=== PATIENT | male | born 1960 | race Caucasian/White ===

== ENCOUNTER 2017-07-13 08:11 | Inpatient (IN) | payer BC ==
--- NOTE | 2017-07-13 08:50 | ED ---
General Adult HPI <Will Oliva - Last Filed: 07/13/17 10:39> - General Source: patient, RN notes reviewed Mode of arrival: ambulatory Limitations: no limitations <Xu Morgan - Last Filed: 07/13/17 10:44> - General Chief complaint: Skin/Abscess/Foreign Body Stated complaint: Wound on Rt leg Time Seen by Provider: 07/13/17 08:31 - History of Present Illness Initial comments: Patient is a 57-year-old male who presents emergency room today with a chief complaint of a chronic wound to the right lower extremity that started back in January of this year. He states she's been on some antibiotics for the last 2 weeks of Keflex with no improvement. He states seems to be getting worse. Patient denies any other complaints or symptoms. Patient denies any recent fever , chills, shortness of breath, chest pain, back pain, abdominal pain, nausea or vomiting, numbness or tingling, dysuria or hematuria, constipation or diarrhea, headaches or visual changes, or any other complaints. (Xu Morgan) - Related Data Home Medications Medication Instructions Recorded Confirmed Benazepril HCl 40 mg PO DAILY@1800 07/13/17 07/13/17 Carvedilol [Coreg] 25 mg PO BID 07/13/17 07/13/17 Cephalexin [Keflex] 500 mg PO Q12HR 07/13/17 07/13/17 Cholecalciferol [Vitamin D3] 1,000 unit PO DAILY 07/13/17 07/13/17 Furosemide [Lasix] 40 mg PO BID PRN 07/13/17 07/13/17 NIFEdipine [NIFEdipine ER] 90 mg PO BID 07/13/17 07/13/17 Pentoxifylline 400 mg PO TID 07/13/17 07/13/17 metFORMIN HCL [Glucophage] 500 mg PO BID 07/13/17 07/13/17 Allergies Allergy/AdvReac Type Severity Reaction Status Date / Time morphine AdvReac Unknown Verified 07/13/17 08:47 Review of Systems ROS Other: All systems not noted in ROS Statement are negative. <Will Oliva - Last Filed: 07/13/17 10:39> ROS Other: All systems not noted in ROS Statement are negative. <Xu Morgan - Last Filed: 07/13/17 10:44> ROS Statement: Those systems with pertinent positive or pertinent negative responses have been documented in the HPI. Past Medical History Past Medical History: Cancer, Diabetes Mellitus, Hypertension Additional Past Medical History / Comment(s): skin History of Any Multi-Drug Resistant Organisms: None Reported Past Surgical History: Hernia Repair Additional Past Surgical History / Comment(s): lesion removed left leg, detached retina repair Past Psychological History: No Psychological Hx Reported Smoking Status: Current every day smoker Past Alcohol Use History: Occasional Past Drug Use History: None Reported <Xu Morgan - Last Filed: 07/13/17 10:44> General Exam <Will Oliva - Last Filed: 07/13/17 10:39> Limitations: no limitations <Xu Morgan - Last Filed: 07/13/17 10:44> - General Exam Comments Initial Comments: General: The patient is awake and alert, in no distress, and does not appear acutely ill. Neck: The neck is supple, there is no tenderness or JVD. Cardiovascular: There is a regular rate and rhythm. No murmur, rub or gallop is appreciated. Respiratory: Lungs are clear to auscultation, respirations are non-labored, breath sounds are equal. No wheezes, stridor, rales, or rhonchi. Musculoskeletal: Full range motion. Sensation intact. Pulses equal bilaterally 2+ patient strength 5/5. Neurological: A&O x 3. CN II-XII intact, There are no obvious motor or sensory deficits. Coordination appears grossly intact. Speech is normal. Skin: There is an area of redness and warmth and some swelling to the lower lateral aspect of the right leg. Largest portion across measures approximately 10 cm. There is no area of fluctuance. There is no lymphangitic streaking. Psychiatric: Normal mood and affect. (Xu Morgan) Vital Signs 07/13/17 07/13/17 08:16 09:39 Temperature 98.9 F Pulse Rate 68 64 Respiratory 16 20 Rate Blood Pressure 122/80 109/54 O2 Sat by Pulse 97 93 L Oximetry Medical Decision Making - Lab Data Result diagrams: 07/13/17 09:30 07/13/17 09:30 <Will Oliva - Last Filed: 07/13/17 10:39> - Lab Data Result diagrams: 07/13/17 09:30 07/13/17 09:30 <Xu Morgan - Last Filed: 07/13/17 10:44> - Medical Decision Making The patient was seen and examined. All diagnostics were reviewed. The case was discussed with internal medicine and they are agreeable to admission. The case is discussed with the PA and I agree with the findings as documented. ( Will Oliva) Patient has been on antibiotics of Keflex over the last 2 weeks with no improvement of this wound. States seems to be getting worse. Patient will be admitted for IV antibiotics for outpatient treatment failure. (Xu Morgan) - Lab Data Lab Results 07/13/17 07/13/17 07/13/17 Range/Units 09:30 09:30 09:30 WBC 10.9 H (3.8-10.6) k/uL RBC 4.98 (4.30-5.90) m/uL Hgb 16.2 (13.0-17.5) gm/dL Hct 50.5 (39.0-53.0) % MCV 101.4 H (80.0-100.0) fL MCH 32.6 (25.0-35.0) pg MCHC 32.1 (31.0-37.0) g/dL RDW 12.9 (11.5-15.5) % Plt Count 291 (150-450) k/uL Neutrophils % 75 % Lymphocytes % 15 % Monocytes % 5 % Eosinophils % 2 % Basophils % 1 % Neutrophils # 8.2 H (1.3-7.7) k/uL Lymphocytes # 1.7 (1.0-4.8) k/uL Monocytes # 0.6 (0-1.0) k/uL Eosinophils # 0.2 (0-0.7) k/uL Basophils # 0.1 (0-0.2) k/uL Sodium 141 (137-145) mmol/L Potassium 4.6 (3.5-5.1) mmol/L Chloride 105 (98-107) mmol/L Carbon Dioxide 25 (22-30) mmol/L Anion Gap 11 mmol/L BUN 14 (9-20) mg/dL Creatinine 0.74 (0.66-1.25) mg/dL Est GFR (MDRD) Af Amer >60 (>60 ml/min/1.73 sqM) Est GFR (MDRD) Non-Af >60 (>60 ml/min/1.73 sqM) Glucose 144 H (74-99) mg/dL Plasma Lactic Acid Wilver 1.1 (0.7-2.0) mmol/L Calcium 9.4 (8.4-10.2) mg/dL Total Bilirubin 0.7 (0.2-1.3) mg/dL AST 17 (17-59) U/L ALT 35 (21-72) U/L Alkaline Phosphatase 71 (38-126) U/L Total Protein 7.6 (6.3-8.2) g/dL Albumin 4.2 (3.5-5.0) g/dL Disposition <Will Oliva - Last Filed: 07/13/17 10:39> Time of Disposition: 08:50 <Xu Morgan - Last Filed: 07/13/17 10:44> Clinical Impression: Cellulitis Disposition: ADMITTED IP TO THIS HOSP Condition: Good Referrals: Jonathan Andrews DO [Primary Care Provider] - 1-2 days
[2017-07-13] MEDS ORDERED: SODIUM CHLORIDE 0.9% 1,000 ML IV STA (09:10)
[2017-07-13] MEDS ORDERED: VANCOMYCIN IV PER PHARMACY 1 EACH MISC MISCELLANE PRN ×2 (09:10→15:04)
[2017-07-13] MEDS ORDERED: VANCOMYCIN 2,500 MG in SODIUM CHLORIDE 0.9% 500 ML IVPB STA (09:14)
[2017-07-13 09:50] LABS: Basophils # (A) 0.1 k/uL (0-0.2); Basophils % (A) 1 %; CH 33.6; CHCM 33.3; Eosinophils # (A) 0.2 k/uL (0-0.7); Eosinophils % (A) 2 %; HCT 50.5 % (39.0-53.0); HDW 2.28; HGB 16.2 gm/dL (13.0-17.5); Luc # (Auto) 0.21; Luc % (Auto) 2; Lymphocytes # (A) 1.7 k/uL (1.0-4.8); Lymphocytes % (A) 15 %; MCH 32.6 pg (25.0-35.0); MCHC 32.1 g/dL (31.0-37.0); MCV 101.4 fL (80.0-100.0); Mean Platelet Volume 7.2; Monocytes # (A) 0.6 k/uL (0-1.0); Monocytes % (A) 5 %; Neutrophils # (A) 8.2 k/uL (1.3-7.7); Neutrophils % (A) 75 %; RBC 4.98 m/uL (4.30-5.90); RDW 12.9 % (11.5-15.5); WBC 10.9 k/uL (3.8-10.6); WBC (Perox) 9.94
[2017-07-13 10:03] LABS: ALT 35 U/L (21-72); AST 17 U/L (17-59); Alkaline Phosphatase 71 U/L (38-126); Anion Gap 11 mmol/L; Blood Urea Nitrogen 14 mg/dL (9-20); Calcium 9.4 mg/dL (8.4-10.2); Carbon Dioxide 25 mmol/L (22-30); Chloride 105 mmol/L (98-107); Glucose 144 mg/dL (74-99); Non-African American GFR(MDRD) >60 (>60 ml/min/1.73 sqM); Potassium 4.6 mmol/L (3.5-5.1); Sodium 141 mmol/L (137-145); Total Bilirubin 0.7 mg/dL (0.2-1.3); Total Protein 7.6 g/dL (6.3-8.2)
[2017-07-13] MEDS ORDERED: AMPICILLIN-SULBACTAM 3 GM in SODIUM CHLORIDE 0.9% 100 ML IVPB STA (10:40)
[2017-07-13] MEDS ORDERED: HYDROcodone/APAP 5-325MG 1 EACH TAB PO PRN (10:44)
[2017-07-13] MEDS ORDERED: ONDANSETRON 4 MG/2 ML VIAL IVP PRN (10:44)
[2017-07-13] MEDS ORDERED: NALOXONE 0.4 MG/ML 1 ML VIAL IV PRN (10:44)
[2017-07-13 12:45] LABS: Glucose,Whole Blood 130 mg/dL (75-99)
[2017-07-13] MEDS ORDERED: FUROSEMIDE 40 MG TAB PO PRN (14:35)
--- NOTE | 2017-07-13 14:58 | P.HPIM ---
History of Present Illness H&P Date: 07/13/17 Chief Complaint: right leg wound 57 year old male with past medical history of hypertension, borderline diabetes , JONATAN. Patient reports an injury back in January to his right lower extremity while working in the basement resulted in a wound that he kept treating conservatively with regular washing cleaning triple antibiotic ointment application and never seen a doctor for it. Month ago he decided to see a doctor because he started weeping in the area of redness is enlarging for which he was started on Keflex for the past 20 days without any significant improvement if anything he noticed worsening weeping from the wound for which he decided come to the hospital for further care. He reports that he had a Doppler ultrasound of his lower extremity done showing multiple leaky veins, he also reports a doctor told him that he had blockages in his lower extremity for which pentoxifylline was started. Patient denies any fevers nausea or vomiting , he admits to some chills, denies any chest pain trouble breathing. He denies any history of MRSA infection. Denies any recent traveling denies any chronic pain in his lower extremities but does admit to neuropathy and burning sensation at the area of the wound. He also reports off and on bilateral leg swelling for which he takes Lasix otherwise he denies any history of heart failure. Review of Systems Constitutional: Patient denies fever, denies night sweating, denies significant weight changes Eyes: Patient denies visual changes, denies eye pain ENT: Patient denies ear pain, denies rhinorrhea, denies sore throat Cardiovascular: Patient denies chest pain, denies exertional dyspnea, denies peripheral leg edema, denies orthopnea, denies paroxysmal nocturnal dyspnea Respiratory:Patient denies cough, denies wheezing, denies shortness of breath Gastrointestinal: Patient denies diarrhea, denies constipation, denies nausea , denies vomiting, denies abdominal pain Genitourinary: Patient denies dysuria, denies hematuria, denies changes in urinary habits, denies genital lesions Musculoskeletal: Patient denies muscle pain, reports generalized joint pain from arthritis Psychiatric: Patient denies changes in mood or memory, denies suicidal ideation, denies anxiety Endocrine: Patient denies heat intolerance, denies cold intolerance, denies excessive thirst, denies polyuria Neurological: Patient denies focal neurologic deficits, denies weakness, denies numbness, denies tingling. He does report some burning sensation off and on over the wound area right lower extremity Hem/Lymphatic: Patient denies bleeding tendency, denies bruising, denies swollen lymph glands Allergic/Immun: Patient denies recent allergic reactions Skin: Patient denies rashes, denies pruritis Past Medical History Past Medical History: Cancer, Diabetes Mellitus, Hypertension, Vascular Disorder Additional Past Medical History / Comment(s): NIDDM type II, PVD, occasional lower leg/pedal edema, skin cancer with removal of the left lower extremity, arhtritis multiple joints, migraines. Obstructive sleep apnea History of Any Multi-Drug Resistant Organisms: None Reported Past Surgical History: Hernia Repair Additional Past Surgical History / Comment(s): skin cancer lesion removed left leg, L eye detached retina repair, colonoscopy with benign polypectomy, abdominal hernia repair. Cyst removal from the back of his head Additional Past Anesthesia/Blood Transfusion Reaction / Comment(s): I wake up with a chemical "hang over." Smoking Status: Current every day smoker Past Alcohol Use History: Rare - Past Family History Mother Family Medical History: Cancer Additional Family Medical History / Comment(s): Mother has breast cancer with mets. Father History Unknown: Yes Additional Family Medical History / Comment(s): Father in a MVA when he was 30 yrs old. Medications and Allergies Home Medications and Allergies Comment(s): Reviewed Home Medications Medication Instructions Recorded Confirmed Type Benazepril HCl 40 mg PO DAILY@1800 07/13/17 07/13/17 History Carvedilol [Coreg] 25 mg PO BID 07/13/17 07/13/17 History Cephalexin [Keflex] 500 mg PO Q12HR 07/13/17 07/13/17 History Cholecalciferol [Vitamin D3] 1,000 unit PO DAILY 07/13/17 07/13/17 History Furosemide [Lasix] 40 mg PO BID PRN 07/13/17 07/13/17 History NIFEdipine [NIFEdipine ER] 90 mg PO BID 07/13/17 07/13/17 History Pentoxifylline 400 mg PO TID 07/13/17 07/13/17 History metFORMIN HCL [Glucophage] 500 mg PO BID 07/13/17 07/13/17 History Allergies Allergy/AdvReac Type Severity Reaction Status Date / Time morphine AdvReac Unknown Verified 07/13/17 08:47 Physical Exam Vitals: Vital Signs Temp Pulse Pulse Resp BP BP Pulse Ox 07/13/17 14:28 97.2 F L 69 16 112/73 93 L 07/13/17 11:04 98.0 F 65 18 112/65 95 07/13/17 09:39 64 20 109/54 93 L 07/13/17 08:16 98.9 F 68 16 122/80 97 Intake and Output 07/12/17 07/13/17 07/13/17 22:59 06:59 14:59 Other: Weight 167.829 kg Patient Weight 07/14/17 06:59 Weight 167.829 kg Constitutional: No acute distress, conversant, pleasant, morbidly obese Eyes: Anicteric sclerae, moist conjunctiva, no lid-lag Pupils equal round reactive to light ENMT: NC/AT Oropharynx clear, no erythema, exudates Neck: Supple, FROM, no masses, or JVD No carotid bruits No thyromegaly Lungs: Clear to auscultation Clear to percussion Normal respiratory effort, no accessory muscle use Cardiovascular: Heart regular in rate and rhythm, No murmurs, gallops, or rubs Bilateral leg edema +1 Abdominal: Soft Nontender, no guarding, rebound or rigidity Abdomen moving with respiration Normoactive bowel sounds Obese limiting evaluation for organomegaly No palpable mass No abdominal wall hernia noted Skin: Bilateral skin changes over the lower extremity with darkening of the skin of the lower third of bilateral legs. There is area of skin changes over the left anterior lower leg patient reports this is due to skin grafting in the past. Over the anterior lower third of the right leg There is a an area of 10 x 10 cm time marked the margins of erythema with background of chronic skin changes and some component of left ligamentous sclerosis with some central ulceration and weeping of serosanguineous fluid, warm to the touch no tenderness to deep palpation. No induration Extremities: No digital cyanosis No clubbing Pedal pulses intact and symmetrical Radial pulses intact and symmetrical No calf tenderness Psychiatric: Alert and oriented to person, place and time Appropriate affect fair judgment Neuro Muscles Strength 5/5 in all 4 extremities Sensation to light touch grossly present throughout Cranial nerves II-XII grossly intact No focal sensory deficits Lymphatics: no palpable cervical or supraclavicular , or inguinal lymph nodes Results CBC & Chem 7: 07/13/17 09:30 07/13/17 09:30 Labs: Abnormal Lab Results - Last 24 Hours (Table) 07/13/17 07/13/17 07/13/17 Range/Units 09:30 09:30 12:33 WBC 10.9 H (3.8-10.6) k/uL MCV 101.4 H (80.0-100.0) fL Neutrophils # 8.2 H (1.3-7.7) k/uL Glucose 144 H (74-99) mg/dL POC Glucose (mg/dL) 130 H (75-99) mg/dL Thrombosis Risk Factor Assmnt - Choose All That Apply Any of the Below Risk Factors Present?: Yes Each Factor Represents 1 point: Age 41-60 years, Obesity (BMI >25), Swollen legs (current) Other Risk Factors: No Other congenital or acquired thrombophilia - If yes, enter type in comment: No Thrombosis Risk Factor Assessment Total Risk Factor Score: 3 Thrombosis Risk Factor Assessment Level: Moderate Risk Assessment and Plan Assessment: 57-year-old male with history of diabetes presented with chronic wound over the right lower extremity failed outpatient therapy with Keflex (1) Cellulitis Narrative/Plan: failed OP therapy possibly superimposed infection on chronic skin changes due to leaky veins ( varicose veins) currently on Vanc and unasyn follow up cultures, vital signs ID cosultation for further recommendations Current Visit: Yes Status: Acute Code(s): L03.90 - CELLULITIS, UNSPECIFIED SNOMED Code(s): 944255659 (2) Lipodermatosclerosis Narrative/Plan: chronic skin changes bilateral LE, worse on the right leg vascular surgery consult for wound therapy , consider MELANY wrapping Current Visit: Yes Status: Acute Code(s): I83.10 - VARICOSE VEINS OF UNSP LOWER EXTREMITY WITH INFLAMMATION SNOMED Code(s): 402703873 (3) JONATAN (obstructive sleep apnea) Narrative/Plan: encouraged to use CPAP Current Visit: Yes Status: Acute Code(s): G47.33 - OBSTRUCTIVE SLEEP APNEA ( ADULT) (PEDIATRIC) SNOMED Code(s): 30522847 (4) Morbid obesity Narrative/Plan: counseling for weight loss and life style modification Current Visit: Yes Status: Acute Code(s): E66.01 - MORBID (SEVERE) OBESITY DUE TO EXCESS CALORIES SNOMED Code(s): 983593608 (5) Diabetes mellitus Narrative/Plan: check A1C on oral hypoglycemic (hold use insulin sliding scale while inpatient Current Visit: Yes Status: Acute Code(s): E11.9 - TYPE 2 DIABETES MELLITUS WITHOUT COMPLICATIONS SNOMED Code(s): 18401979 (6) DVT prophylaxis Narrative/Plan: heparin sc Current Visit: Yes Status: Acute Code(s): BWQ9423 - SNOMED Code(s): 349126693 Plan: Tobacco smoking counseled to quit smoking NRT offered Surrogate decision-maker: CODE STATUS:Full DVT prophylaxis: Heparin sc Discussed with: Patient, ER, RN, family Anticipated discharge: [address]: home A total of 45 minutes was spent on the care of this complex patient more than 50 % of the time was spent in counseling and care coordination.
[2017-07-13 15:24] VITALS: BMI 46.2
[2017-07-13] MEDS: HEPARIN SODIUM,PORCINE 5,000 UNIT/ML 1 ML VIAL SQ SCH ×2 (17:14→21:50)
[2017-07-13] MEDS: NICOTINE 21MG/24HR PATCH TRANSDERM SCH (17:14)
[2017-07-13] MEDS: VANCOMYCIN 2,500 MG in SODIUM CHLORIDE 0.9% 500 ML IVPB SCH (17:18)
[2017-07-13] MEDS: INSULIN ASPART 100 UNIT/ML 1 ML 10 ML VIAL SQ SCH ×2 (17:19→21:46)
[2017-07-13] MEDS ORDERED: CARVEDILOL 12.5 MG TAB PO SCH (17:30)
[2017-07-13 17:32] LABS: Glucose,Whole Blood 118 mg/dL (75-99)
[2017-07-13] MEDS ORDERED: LISINOPRIL 20 MG TAB PO SCH (18:00)
[2017-07-13] MEDS ORDERED: NIFEdipine XL 90 MG TAB.ER.24 PO STA (18:58)
[2017-07-13 20:32] LABS: Glucose,Whole Blood 131 mg/dL (75-99)
[2017-07-13] MEDS ORDERED: NIFEdipine XL 90 MG TAB.ER.24 PO SCH (21:00)
[2017-07-14] MEDS ORDERED: NIFEdipine XL 90 MG TAB.ER.24 PO SCH (04:00)
[2017-07-14] MEDS ORDERED: CHOLECALCIFEROL 1,000 UNIT TAB PO SCH ×3 (04:00→09:00)
[2017-07-14] MEDS ORDERED: CARVEDILOL 12.5 MG TAB PO SCH (04:00)
--- NOTE | 2017-07-14 05:47 | CONS ---
CONSULTATION DATE OF SERVICE: 07/13/2017 REASON FOR CONSULTATION: Right leg wound and cellulitis. HISTORY OF PRESENT ILLNESS: The patient is a 57-year-old, male, who apparently injured his right leg about 3 weeks ago while he was working in his basement. He did mention that something went through his brook pants to scratch his right becerra. The patient subsequently started to notice area becoming swollen, red, painful. Pain is described to be throbbing 3 to 4 out of 10, and no radiation. Subsequently the patient did see his primary care physician. The patient has been treated with oral Keflex with multiple courses. The patient is now coming to the [facility] ER with worsening swelling, redness and drainage, drainage is mostly yellow color, but no purulence. The patient did mention that he had some chills but no high-grade fever. The patient was started on vancomycin and admitted hospital and I was asked to see the patient for further recommendation regarding antibiotic therapy. REVIEW OF SYSTEMS: CONSTITUTIONAL: Positive for weakness with some chills, but no high-grade fever. EYES: No complaint. ENT: No complaint. RESPIRATORY: No complaint. CARDIOVASCULAR: No complaint. GENITOURINARY: No complaint. GASTROINTESTINAL: No complaint. MUSCULOSKELETAL: No complaint. INTEGUMENTARY: As per HPI. PSYCHOLOGICAL: No complaint. ENDOCRINE: No complaint. NEUROLOGIC: No complaint. PAST MEDICAL HISTORY: Hypertension, diabetes mellitus, peripheral vascular disease, history of skin cancer, migraine headaches, osteoarthritis. PAST SURGICAL HISTORY: Hernia repair, skin cancer removal, colonoscopy with benign polyps removed, abdominal hernia repair. SOCIAL HISTORY: Patient is a current everyday smoker. No drinking or any drug use. FAMILY HISTORY: Mother with history of breast cancer. Father in motor vehicle accident when he was 29 years old. ALLERGIES: Allergies to MORPHINE. MEDICATIONS: Medications include the patient is currently on [place], Coreg, vitamin D3, Lasix, heparin, NovoLog, Zestril, Narcan, nicotine patch, Procardia XL, vancomycin 2500 q.12. PHYSICAL EXAMINATION: On examination, his blood pressure is 112/73 with a pulse of 69, temperature of 97.2. He is 93% on room air. General description is a middle-aged male lying in bed in no distress. No tachypnea or accessory muscle of respiration use. HEENT examination shows no pallor or scleral icterus. Oral mucous membranes dry. NECK: Trachea is central. No thyromegaly. LUNGS: Unlabored breathing, clear to auscultation anteriorly. No wheeze or crackle. HEART: S1, S2. Regular rate and rhythm. No added sounds. ABDOMEN: Soft, no tenderness. No guarding. No rigidity. EXTREMITIES: Does have 2+ edema of feet. Right leg with areas of erythematous patch is more discolored. Some superficial wound, but no drainage was noted. NEUROLOGICAL: The patient is awake, alert, oriented x3. Mood and affect normal. LABS: Hemoglobin 16.2 with white count 10.9. BUN of 14, creatinine 0.74. Liver enzymes are normal. Electrolytes are normal. DIAGNOSTIC IMPRESSION AND PLAN: Patient with acute right lower extremity cellulitis started with a trauma to the leg about 3 weeks ago failing outpatient oral Keflex therapy with question of possible cellulitis and methicillin-resistant Staphylococcus aureus. Clinically doubt any gram- negative infection. PLAN: 1. Vancomycin pharmacy to dose target of 15. 2. Marked the area of redness. 3. Aquacel silver to the small wound followed by Jermaine wrap to both legs to keep some of the swelling down. 4. Depending upon his clinical response as well as culture, will adjust the medication further if needed. Thank you for this consultation. Will follow this patient along with you. MMODL / IJN: [id number] / CLARE
[2017-07-14] MEDS: VANCOMYCIN 2,500 MG in SODIUM CHLORIDE 0.9% 500 ML IVPB SCH (06:19)
[2017-07-14 07:37] LABS: Glucose,Whole Blood 181 mg/dL (75-99)
[2017-07-14 07:40] VITALS: BP 105/39; PULSE 60; RESP 18; TEMP 97.1
[2017-07-14] MEDS: HEPARIN SODIUM,PORCINE 5,000 UNIT/ML 1 ML VIAL SQ SCH (08:17)
[2017-07-14] MEDS: NICOTINE 21MG/24HR PATCH TRANSDERM SCH (08:17)
[2017-07-14] MEDS: INSULIN ASPART 100 UNIT/ML 1 ML 10 ML VIAL SQ SCH ×2 (08:20→13:06)
--- NOTE | 2017-07-14 10:12 | CONS ---
CONSULTATION This is a 57-year-old gentleman who has been admitted to [facility] with history of chronic wound right lower extremity. Patient had this wound in month of January and he was treated by his family physician and according to the patient, he seen a vascular surgeon at [place] and he had some workup of the circulation on his right lower extremity. MEDICAL HISTORY: Patient's medical history includes history of diabetes mellitus, hypertension, sleep apnea. No history of rest pain. Patient has some history of claudication. PHYSICAL EXAMINATION: On examination, patient was seen in his room. His neck is supple. No bruit appreciated. Chest is clear to auscultation. First and second sounds normal. ABDOMEN: Soft, nontender. VASCULAR EXAMINATION: Femorals are 1+. The patient has of the both lower extremities and there is 2 small chronic wounds on the lateral aspect of the right lower extremity. No discharge or redness noted. IMPRESSION: Venous hypertension with peripheral vascular disease PVD and some small wounds on the lateral aspect of the right leg. No drainage is noted. At this point, patient is on IV antibiotic and local wound care. I have discussed with him in detail that patient needs a venous study to check for the reflux in the greater saphenous vein, short saphenous vein and product inspection supervisor vein. According to the patient, he has a complete workup done at [place] and he would like to go back to his physician and if he wants to come and see me, we will arrange for further workup. At this point, the patient can go home on local wound care. MMODL / IJN: [id number] /
[2017-07-14 12:24] LABS: Glucose,Whole Blood 98 mg/dL (75-99)
--- NOTE | 2017-07-14 14:04 | P.DS ---
Providers Date of admission: 07/13/17 10:39 Expected date of discharge: 07/14/17 Attending physician: Magdalene Wilson MD Consults: 07/13/17 14:38 Consult Physician Routine Consulting Provider: Guido Vázquez Consult Reason/Comments: lower ext vascular insuf, chronic wound Do you want consulting provider notified?: Yes Consult Physician Routine Consulting Provider: Coby Mcmanus Consult Reason/Comments: chronic right lower extremity wound failed OP abx Do you want consulting provider notified?: Yes Primary care physician: Jonathan Andrews - Discharge Diagnosis(es) (1) Cellulitis failed outpatient therapy with keflex Current Visit: Yes Status: Acute (2) Lipodermatosclerosis 2/2 chronic venous insufficiency of lower extremities Current Visit: Yes Status: Acute (3) JONATAN (obstructive sleep apnea) Current Visit: Yes Status: Acute (4) Morbid obesity Current Visit: Yes Status: Acute (5) Diabetes mellitus Current Visit: Yes Status: Acute (6) DVT prophylaxis Current Visit: Yes Status: Acute Hospital Course: 57 year old male with past medical history of hypertension, borderline diabetes , JONATAN. Patient reports an injury back in January to his right lower extremity while working in the basement resulted in a wound that he kept treating conservatively with regular washing cleaning triple antibiotic ointment application and never seen a doctor for it. Month ago he decided to see a doctor because he started weeping fluid after he injured his leg again and the area of redness is enlarging for which he was started on Keflex for the past 20 days without any significant improvement if anything he noticed worsening weeping from the wound for which he decided come to the hospital for further care. He reports that he had a Doppler ultrasound of his lower extremity done showing multiple leaky veins, he also reports a doctor told him that he had blockages in his lower extremity for which pentoxifylline was started. Patient denies any fevers nausea or vomiting, he admits to some chills, denies any chest pain trouble breathing. He denies any history of MRSA infection. Denies any recent traveling denies any chronic pain in his lower extremities but does admit to neuropathy and burning sensation at the area of the wound. He also reports off and on bilateral leg swelling for which he takes Lasix otherwise he denies any history of heart failure. Patient was started on vancomycin , and showed some improvement in his redness , however, it seems to have severe underlying dermatitis, blood cultures negative to date, vascular surgery evaluated the patient and recommended outpatient follow up , and applied MELANY wrapping. case discussed with ID, and agrees on discharging the patient on bactrim DS for 10 days patient denies any chest pain, fever, chills, nausea or vomiting, he reports less pain in his right lower extremity and eager to go home, he agrees with the above plan General, stable vital signs, conversant, pleasant Lungs CTA BL, no wheezes Ronchi or rales CVS nl S1 S2, no murmurs, no gallops no rubs, peripheral edema +2 bilaterally Abd obese limiting exam, soft, no tenderness, BS + Extremities, area of redness over the right leg, does not seem to have regressed compared to the marking from yesterday , but it looks less intense, no weeping of fluids today from the wound which was not purulent to start with, chronic dermatitis R > L leg. psych alert oriented to [facility] person and time patient counseled to lose weight and quit smoking, follow up with PCP , vascular surgery and ID. continue on bactrim for 10 days continue with MELANY wrapping daily , to be applied in the morning after waking up 35 minutes spent discharging this patient , more than 50% of the time spent coordinating care and counseling patient discharged in stable clinical condition Patient Condition at Discharge: Good Plan - Discharge Summary Discharge Rx Participant: No New Discharge Prescriptions: New Sulfamethox-Tmp 800-160Mg [Bactrim DS 800-160 mg] 1 tab PO Q12HR #20 tab Continue Pentoxifylline 400 mg PO TID NIFEdipine [NIFEdipine ER] 90 mg PO BID Furosemide [Lasix] 40 mg PO BID PRN PRN Reason: Edema Cholecalciferol [Vitamin D3] 1,000 unit PO DAILY Carvedilol [Coreg] 25 mg PO BID metFORMIN HCL [Glucophage] 500 mg PO BID Benazepril HCl 40 mg PO DAILY@1800 Discontinued Cephalexin [Keflex] 500 mg PO Q12HR Discharge Medication List Benazepril HCl 40 mg PO DAILY@1800 07/13/17 [History] Carvedilol [Coreg] 25 mg PO BID 07/13/17 [History] Cholecalciferol [Vitamin D3] 1,000 unit PO DAILY 07/13/17 [History] Furosemide [Lasix] 40 mg PO BID PRN 07/13/17 [History] NIFEdipine [NIFEdipine ER] 90 mg PO BID 07/13/17 [History] Pentoxifylline 400 mg PO TID 07/13/17 [History] metFORMIN HCL [Glucophage] 500 mg PO BID 07/13/17 [History] Sulfamethox-Tmp 800-160Mg [Bactrim DS 800-160 mg] 1 tab PO Q12HR #20 tab [Rx] Follow up Appointment(s)/Referral(s): Jonathan Andrews DO [Primary Care Provider] - 1-2 days Guido Vázquez MD [STAFF PHYSICIAN] - 1 Week Coby Mcmanus MD [STAFF PHYSICIAN] - 1 Week Ambulatory/Diagnostic Orders: Basic Metabolic Panel [LAB.AMB] Time Frame: 3 Days, Location: Determined By Patient Patient Instructions/Handouts: Type 2 Diabetes in Adults (DC), Peripheral Vascular Disease (GEN), Stasis Dermatitis (GEN), Venous Insufficiency (GEN) Activity/Diet/Wound Care/Special Instructions: diabetic diet activity as tolerated Discharge Disposition: HOME SELF-CARE
--- NOTE | 2017-07-14 14:48 | PN ---
PROGRESS NOTE DATE OF SERVICE: 07/14/2017. REASON FOR FOLLOWUP: Right leg wound cellulitis. INTERVAL HISTORY: The patient is afebrile. He is feeling better. Breathing comfortably. Did mention that the pain to the right leg has improved. The redness has decreased. Denies any chest pain, shortness of breath or cough. No abdominal pain, diarrhea. EXAMINATION: Blood pressure is 105/59 with a pulse of 60, temperature 97.9. He is 94% on room air. General description is a middle aged male up in the bed in no distress. Respiratory system unlabored breathing. Clear to auscultation anteriorly. Heart S1, S2. Regular rate and rhythm. ABDOMEN: Soft, no tenderness. Right leg swelling and redness has improved. LABS: No new labs have been obtained today. Blood culture has been negative. DIAGNOSTIC IMPRESSION AND PLAN: Patient with right lower extremity wound cellulitis that has failed outpatient Keflex therapy. Overall improvement on vancomycin. The patient is insisting on going home. He will be switched over to Bactrim DS 1 twice a day for another 10 days. The patient also instructed to apply Jermaine wrap to keep the swelling down and will follow up with the patient in about a week in the outpatient setting. Plan of care was discussed with the admitting physician. MMODL / IJN: [id number] /
[2017-07-15] MEDS ORDERED: VANCOMYCIN TROUGH DUE 1 EACH MISC MISCELLANE ONE (05:00)
== END 2017-07-14 14:38 | disposition home or self-care (01) | DRG 603 ==
LOC: EC 08:11 → 4MS4W 10:39
PROVIDERS: ADMIT Internal Medicine; ATTEND Internal Medicine
DX: L03.115 Cellulitis of right lower limb (principal); E11.40 Type 2 diabetes mellitus with diabetic neuropathy, unspecified; E11.51 Type 2 diabetes mellitus with diabetic peripheral angiopathy without gangrene; E66.01 Morbid (severe) obesity due to excess calories; I87.301 Chronic venous hypertension (idiopathic) without complications of right lower extremity; I10 Essential (primary) hypertension; G47.33 Obstructive sleep apnea (adult) (pediatric); G43.909 Migraine, unspecified, not intractable, without status migrainosus; M19.91 Primary osteoarthritis, unspecified site; Z86.010 Personal history of colon polyps; Z85.828 Personal history of other malignant neoplasm of skin; F17.200 Nicotine dependence, unspecified, uncomplicated; Z79.84 Long term (current) use of oral hypoglycemic drugs; Z79.899 Other long term (current) drug therapy; Z88.5 Allergy status to narcotic agent
CPT/HCPCS: 36415; 80053; 83036; 83605; 85025; 87040; 96365; 96366; 99284

== ENCOUNTER → 2019-08-07 | Outpatient (CLI) | payer BC | LOC: RADMRIMAIN 05:59 | PROVIDERS: ATTEND Family Medicine | DX: Z53.9 Procedure and treatment not carried out, unspecified reason (principal) ==

== ENCOUNTER → 2019-09-22 | Outpatient (CLI) | payer BC ==
--- NOTE | 2019-09-22 09:53 | MR ---
EXAMINATION TYPE: MR cervical spine wo con DATE OF EXAM: 09/22/2019 COMPARISON: Back pain, tingling in hands HISTORY: Back pain, tingling in hands TECHNIQUE: Multiplanar, multisequence images of the cervical spine were acquired. C2-C3: No disc herniation or canal stenosis. No foraminal encroachment. C3-C4: Degenerative disc disease with facet arthropathy. Broad-based disc bulging capped by spur with hypertrophic changes of the uncovertebral joints. Moderate bilateral foraminal encroachment mild eff acement of thecal sac. C4-C5: Degenerative disc disease with facet arthropathy greater on the left and mild left-sided negro inal encroachment. Central disc bulging. C5-C6: A multilevel facet arthropathy greater on the left. No disc herniation or canal stenosis. Mild left foraminal encroachment. Mild central broad-based disc bulging efface the thecal sac but no debi l stenosis. Tiny annular tear in the differential diagnosis. C6-C7: Posterior spondylosis with disc bulging or protrusion abutting the anterior margin the spinal cord resulting in moderate canal stenosis. Uncovertebral joint hypertrophy contributes to mild to mod erate bilateral foraminal encroachment. C7-T1: No evidence for degenerative disc disease. No disc bulge/herniation or protrusion. No Canal stenosis. Foramina are patent bilaterally. Cervical segments are intact. There is normal alignment. Cervical spinal cord is of normal signal. Craniovertebral junction relationships are within normal limits. IMPRESSION: 1. Multilevel degenerative disc disease and multilevel facet arthropathy resulting in foraminal encro achment. 2. Disc bulging capped by spur with hypertrophic changes C3-C4 results in moderate bilateral foramina l encroachment and mild effacement of thecal sac. 3. Posterior spondylosis C6-C7 with disc protrusion capped by spur and hypertrophic changes resulting in moderate canal stenosis and bilateral mild to moderate foraminal encroachment. Disc capped by spu r abuts the anterior margin of the spinal cord at this level. 4. Annular tear and tiny broad-based disc bulging C5-C6. Mild impression upon the thecal sac with no canal stenosis.
== END | disposition home or self-care (01) ==
LOC: RADMRIMAIN 08:58
PROVIDERS: ATTEND Family Medicine
DX: M48.02 Spinal stenosis, cervical region (principal); M50.023 Cervical disc disorder at C6-C7 level with myelopathy; M50.01 Cervical disc disorder with myelopathy, high cervical region; M47.12 Other spondylosis with myelopathy, cervical region; M46.92 Unspecified inflammatory spondylopathy, cervical region
CPT/HCPCS: 72141